=== PATIENT | female | born 1940 | race Caucasian/White ===

== ENCOUNTER 2020-02-07 14:42 | Inpatient (IN) | payer OTHER, SELFPAY ==
[~2020-02-07] VITALS: Ht 160 cm; Wt 63.5 kg
--- NOTE | 2020-02-07 14:52 | NUR ---
Patient transferred to bed 11 via wheelchair by tech. RN evaluating patient at bedside.
[2020-02-07 15:07] VITALS: BP 210/104
--- NOTE | 2020-02-07 15:09 | NUR ---
80 Y/O F C/C LEFT FOOT PRESSURE ULCER PROGRESSIVELY GETTING WORSE FOR THE LAST TWO MONTHS. PT IN NO DISTRESS, DENIES PAIN, A/OX4. PER DAUGHTER UNABLE TO WALK DUE TO PRESSURE ULCER ON LEFT HEEL WORSENING. FOOT ASSESSMENT ERYTHEMA NOTED AROUND ULCER, ULCER DEEP IN DEPTH WITH YELLOW COLORATION, NO DRAINAGE NOTED. PT NKA. HX HTN,HDL,DM. RX INSULIN, UNABLE TO OBTAIN RX FOR HTN,HDL. PT CURRENTLY ON ABX PRESCRIBED OUTSIDE OF COUNTRY. PT WHEELCHAIR TO BED AND ASSISTED TO BED, ADEQUATE STRENGTH ON RIGHT LEG NOTED. SIDE RAIL X2.
--- NOTE | 2020-02-07 15:10 | NUR ---
ERMD AT BEDSIDE
[2020-02-07] MEDS ORDERED: LANTUS SUBQ (15:20)
[2020-02-07] MEDS ORDERED: NACL 0.9% 1,000 ML IV ONE (15:25)
[2020-02-07] MEDS ORDERED: PIPERACILLIN/TAZOBACTAM 3.375 GM in DEXTROSE 5% 50 ML IV ONE (15:25)
[2020-02-07] MEDS ORDERED: ONDANSETRON 4 MG/2 ML VIAL IVP ONE (15:25)
[2020-02-07] MEDS ORDERED: MORPHINE SULFATE 4 MG/ML SYR IVP ONE (15:25)
[2020-02-07] MEDS ORDERED: VANCOMYCIN 1,000 MG in DEXTROSE 5% 250 ML IV ONE (15:25)
[2020-02-07] MEDS ORDERED: PIPERACILLIN/TAZOBACTAM 3.375 GM VIAL IV ONE (15:34)
--- NOTE | 2020-02-07 15:47 | NUR ---
LAB AT BEDSIDE
[2020-02-07] MEDS ORDERED: VANCOMYCIN 1,000 MG VIAL ONE ×2 (15:54→16:07)
[2020-02-07 15:57] LABS: BASOPHILS # (AUTO) 0.2 K/uL (0.00-0.22); BASOPHILS % (AUTO) 1.1 % (0.0-2.0); EOSINOPHILS # (AUTO) 0.3 K/uL (0-0.4); EOSINOPHILS % (AUTO) 1.9 % (0.0-4.0); HEMATOCRIT 35.5 % (36-48); HEMOGLOBIN 11.5 g/dL (12.0-16.0); LYMPHOCYTES # (AUTO) 4.1 K/uL (2.5-16.5); MEAN CORPUSCULAR HEMOGLOBIN 28 pg (27-31); MEAN CORPUSCULAR HGB CONC 32 g/dL (33-37); MEAN CORPUSCULAR VOLUME 88.1 fL (80-94); MONOCYTES # (AUTO) 1.1 K/uL (0.8-1.0); MONOCYTES % (AUTO) 7.3 % (1.7-9.3); NEUTROPHILS # (AUTO) 9.1 K/uL (1.8-7.7); NEUTROPHILS % (AUTO) 61.7 % (42.2-75.2); PLATELET COUNT (AUTO) 185 K/uL (140-450); RED BLOOD CELL COUNT(AUTO) 4.03 MIL/uL (4.20-5.40); RED CELL DISTRIBUTION WIDTH 14.3 % (11.6-13.7); WHITE BLOOD COUNT (AUTO) 14.8 K/uL (4.8-10.8)
--- NOTE | 2020-02-07 15:57 | NUR ---
DAUGHTER: KHADRA OCAMPO PHONE: [phone]
--- NOTE | 2020-02-07 15:57 | NUR ---
PT RESTING IN BED, SIDE RAIL X1 [facility]
[2020-02-07 16:13] LABS: PROTHROMBIN TIME 10.1 secs (10.8-13.4)
[2020-02-07 16:15] LABS: ALBUMIN 2.4 g/dL (3.4-5.0); ANION GAP 10.6 (8-16); ASPARTATE AMINOTRANSFERASE 16 U/L (15-37); CARBON DIOXIDE 28.3 mmol/L (21-32); CHLORIDE 105 mmol/L (98-107); CREATININE 1.3 mg/dL (0.6-1.3); GLUCOSE 236 mg/dL (74-106); POTASSIUM 3.9 mmol/L (3.5-5.1); SODIUM SERUM 140 mmol/L (136-145); TOTAL BILIRUBIN 0.2 mg/dL (0.0-1.0); UREA NITROGEN, BLOOD 17 mg/dL (7-18)
[2020-02-07] MEDS ORDERED: LORazepam 2 MG/ML VIAL IM/IVP PRN (16:45)
[2020-02-07] MEDS ORDERED: ZOLPIDEM 5 MG TAB PO PRN (16:45)
[2020-02-07] MEDS ORDERED: ONDANSETRON 4 MG/2 ML VIAL IM/IVP PRN (16:45)
[2020-02-07] MEDS ORDERED: DOCUSATE SODIUM 100 MG GELCAP PO PRN (16:45)
--- NOTE | 2020-02-07 17:08 | NUR ---
RAD AT BEDSIDE
--- NOTE | 2020-02-07 17:09 | NUR ---
FLOOR MD AT BEDSIDE
--- NOTE | 2020-02-07 17:14 | NUR ---
URINE OBTAINED ; PT VOIDED ON BEDPAN
--- NOTE | 2020-02-07 17:30 | NUR ---
RAD AT BEDSIDE
[2020-02-07] MEDS ORDERED: VANCOMYCIN PER PHARMACY MC PRN (17:45)
[2020-02-07] MEDS ORDERED: DEXTROSE 50% 50 ML SYR IVP PRN (17:45)
--- NOTE | 2020-02-07 17:45 | NUR ---
RECEIVED PATIENT FROM ED VIA GURNEY. PATIENT IS ALERT, AWAKE, AND ORIENTED X4. PATIENT IS CROATIAN SPEAKING ONLY. INITIAL VITALS 98.2 81 18 163/65. RESP EVEN AND UNLABORED ON ROOM AIR, O2SAT 96%. PATIENT DENIES OF PAIN AND DISCOMFORT AT THIS TIME. PATIENT HAS DIABETIC ULCERS TO LEFT LOWER HEEL AND LATER ASPECT OF LEFT FOOT. IVF STARTED WITH NS AT 40ML/HR TO LEFT AC 20. INVESTIGATION MANAGER IS DAUGHTER KARINA SALAZAR AT [phone]. PLAN OF CARE DISCUSSED WITH PATIENT. BED IN LOW POSITION, CALL LIGHT IN PLACE. WILL CONTINUE TO MONITOR.
--- NOTE | 2020-02-07 17:50 | NUR ---
Patient will be admitted to care of SALAZAR. Admited to TELEMETRY. Will go to room 121B. Belongings list completed. Report to DUSTY MONTALVO.
[2020-02-07] MEDS ORDERED: BISACODYL 10 MG SUPP RC ONE ×2 (18:10→21:21)
[2020-02-07] MEDS: NACL 0.9% 1,000 ML IV SCH (18:15)
[2020-02-07 18:19] LABS: THYROID STIMULATING HORMONE 1.98 uIU/mL (0.34-3.74)
--- NOTE | 2020-02-07 19:05 | NUR ---
VITALS AT 97.1 76 14 201/81 98% RA. REPORTED TO DR NAIR. NO NEW ORDERS AT THIS TIME.
[2020-02-07 19:19] LABS: APPEARANCE,URINE CLEAR (CLEAR); BILIRUBIN,URINE NEGATIVE (NEGATIVE); BLOOD, URINE NEGATIVE (NEGATIVE); COLOR,URINE YELLOW (YELLOW); LEUKOCYTE ESTERASE ,URINE TRACE (NEGATIVE); NITRITE, URINE NEGATIVE (NEGATIVE); UGLUCOSE NEGATIVE (NEGATIVE)
--- NOTE | 2020-02-07 19:25 | NUR ---
ENDORSED PATIENT TO NIGHT NURSE. PATIENT IN STABLE CONDITION.
[2020-02-07 19:30] VITALS: BP 218/88
--- NOTE | 2020-02-07 19:30 | NUR ---
RAMA. REPORT FROM AM NURSE, ADMISSION FROM ER TO TELEMETRY UNIT , with chief complaint of WORSENING LEFT FOOT DIABETIC ULCER ,80 y/o ,Female, Cooperative, AWAKE, A/OX3. RESPIRATION EVEN AND UNLABORED. LEGALLY BLIND, ADMITTED SHE HAS BLURRY VISION. IV OF NS AT 40 ML/HR INFUSING LEFT AC G20. USES A WHEEL CHAIR AT HOME, ASSISTED TO BR TO VOID BY . LEFT FOOT DIABETIC ULCER AT THE HEEL AND LATERAL ASPECT OF LEFT FOOT, OPEN TO AIR, WITH MINIMAL DRAINAGE NOTED. ADMISSION DATA GATHERED WITH HELP OF MEAT CURER JOSE #[id number]. PLAN OF CARE DISCUSSED WITH PATIENT. NEEDS REINFORCEMENT. DENIES PAIN 0/10. oriented to call light, bed, phone,television, bathroom, smoking policy,visiting hours, procedures, ID bracelet on. Belongings list checked.
[2020-02-07] MEDS: LISINOPRIL 10 MG TAB PO SCH (19:48)
--- NOTE | 2020-02-07 19:48 | NUR ---
BP - 218/88, HR - 80, MEDICATED WITH ZESTRIL PER MD ORDER.
[2020-02-07 20:17] LABS: RBC,URINE 0-5 /HPF (0-5)
[2020-02-07] MEDS: hydrALAZINE 20 MG/ML VIAL IVP PRN (21:00)
--- NOTE | 2020-02-07 21:00 | NUR ---
BP CHECKED - 194/89, HR - 76. MEDICATED WITH APRESOLINE IVP BY SELVIN CANTRELL. WILL CONTINUE TO MONITOR.
--- NOTE | 2020-02-07 21:23 | NUR ---
CONSTIPATED, LAST BM SATURDAY. MEDICATED WITH DULCOLAX SUPPOSITORY PER MD ORDER.
--- NOTE | 2020-02-07 21:26 | NUR ---
Patient's Plan of Care was discussed and reviewed with SUPERVISOR DIALS: GILBERT CULP
[2020-02-07] MEDS: BLOOD GLUCOSE MONITORING 1 DEV DEV FS SCH (21:30)
[2020-02-07] MEDS: INSULIN LISPRO SLIDING SCALE 100 UNITS/ML VIAL SUBQ PRN (21:31)
[2020-02-07] MEDS ORDERED: PNEUMOCOCCAL VACCINE 23 MCG/0.5 ML VIAL IMVAC SCH (23:10)
--- NOTE | 2020-02-07 23:45 | NUR ---
CLEANSE WOUNDS WITH NS, AEROBIC AND ANAEROBIC CULTURE DONE. ÓSCAR/RENE RNs CLEANSED WOUND WITH NS, APPLIED ADAPTIC DRESSING AND COVERED WITH GAUZE AND KERLIX DRESSING. MADE COMFORTABLE IN BED WITH PILLOWS.
[2020-02-08] VITALS: BP 159/79
--- NOTE | 2020-02-08 | NUR ---
RESTING IN BED, BP CHECKED - 159/7Y9, HR - 98.
[2020-02-08] MEDS: HYDROcodone/APAP 5/325 MG 1 TAB TAB PO PRN ×5 (00:11→20:31)
[2020-02-08] MEDS ORDERED: PIPERACILLIN/TAZOBACTAM 3.375 GM VIAL IV ONE (00:20)
[2020-02-08] MEDS: PIPERACILLIN/TAZOBACTAM 3.375 GM in DEXTROSE 5% 50 ML IV SCH ×3 (00:31→15:19)
--- NOTE | 2020-02-08 02:20 | NUR ---
HAD SOFT YELLOW BROWN BM, SEMI-MEDIUM IN SIZE. CLEANSED AND REPOSITIONED IN BED WITH PILLOWS.
--- NOTE | 2020-02-08 04:00 | NUR ---
SLEEPING COMFORTABLY IN BED.
[2020-02-08 04:30] VITALS: BP 208/101
[2020-02-08] MEDS: hydrALAZINE 20 MG/ML VIAL IVP PRN ×2 (04:45→14:06)
[2020-02-08 06:00] LABS: BASOPHILS % (AUTO) 0.3 % (0.0-2.0); EOSINOPHILS # (AUTO) 0.2 K/uL (0-0.4); EOSINOPHILS % (AUTO) 1.5 % (0.0-4.0); HEMATOCRIT 35.6 % (36-48); HEMOGLOBIN 11.6 g/dL (12.0-16.0); LYMPHOCYTES # (AUTO) 3.5 K/uL (2.5-16.5); LYMPHOCYTES % (AUTO) 21.3 % (20.5-51.1); MEAN CORPUSCULAR HEMOGLOBIN 29 pg (27-31); MEAN CORPUSCULAR HGB CONC 33 g/dL (33-37); MEAN CORPUSCULAR VOLUME 87.9 fL (80-94); MONOCYTES % (AUTO) 6.2 % (1.7-9.3); NEUTROPHILS # (AUTO) 11.6 K/uL (1.8-7.7); NEUTROPHILS % (AUTO) 70.7 % (42.2-75.2); PLATELET COUNT (AUTO) 325 K/uL (140-450); RED BLOOD CELL COUNT(AUTO) 4.05 MIL/uL (4.20-5.40); RED CELL DISTRIBUTION WIDTH 14.4 % (11.6-13.7); WHITE BLOOD COUNT (AUTO) 16.4 K/uL (4.8-10.8)
[2020-02-08] MEDS: BLOOD GLUCOSE MONITORING 1 DEV DEV FS SCH ×4 (06:23→20:20)
[2020-02-08] MEDS: INSULIN LISPRO SLIDING SCALE 100 UNITS/ML VIAL SUBQ PRN ×2 (06:24→16:54)
[2020-02-08 06:27] LABS: ANION GAP 9.5 (8-16); CARBON DIOXIDE 30.3 mmol/L (21-32); CHLORIDE 105 mmol/L (98-107); CREATININE 1.1 mg/dL (0.6-1.3); GLUCOSE 182 mg/dL (74-106); POTASSIUM 4.8 mmol/L (3.5-5.1); SODIUM SERUM 140 mmol/L (136-145); UREA NITROGEN, BLOOD 13 mg/dL (7-18)
[2020-02-08 06:42] LABS: CHOL/HDL RATIO 4.1 (1-4.5)
--- NOTE | 2020-02-08 07:00 | NUR ---
APPLIED BILATERAL LEG SEQUENTIALS, AFTER 30 MINUTES REQUESTED SEQUENTIAL ON THE LEFT LEG TO BE TAKEN OFF, STATED IT IS UNCOMFORTABLE. CONDITION REMAIN STABLE. WILL ENDORSE TO AM SHIFT NURSE FOR CONTINUITY OF CARE.
--- NOTE | 2020-02-08 07:20 | NUR ---
SHIFT REPORT RECEIVED FROM FISHER LAMPARA NET NURSE. PT IS IN BED SLEEPING AT THIS TIME. IV LINE PLACE. SAFETY MEASURES IN PLACE. WILL CONTINUE TO MONITOR. CALL LIGHT IN REACH.
[2020-02-08 08:00] VITALS: BP 158/72
[2020-02-08] MEDS: LACTOBACILLUS RHAMNOSUS GG 1 EACH CAP PO SCH (08:55)
[2020-02-08] MEDS: LISINOPRIL 10 MG TAB PO SCH (08:56)
[2020-02-08] MEDS ORDERED: INSULIN LANTUS 100 UNITS/ML 10 ML VIAL SUBQ SCH (09:00)
--- NOTE | 2020-02-08 09:17 | NUR ---
PATIENT HAS BEEN SCREENED AND CATEGORIZED HIGH NUTRITION RISK. PATIENT WILL BE SEEN WITHIN 1-2 DAYS OF ADMISSION. 02/08/20-02/09/[address]
--- NOTE | 2020-02-08 09:18 | NUR ---
LANTUS 50U NOT GIVEN. BS 101. NOTIFIED
--- NOTE | 2020-02-08 10:59 | NUR ---
COUNSELING CASE MANAGER NOTE: Basic Screen: Yes High Risk DC Screen [place]: KARINA DOUGLAS Home Relationship: DAUGHTER Pre-Admission Living Arrangements: Lives with Other Prior ADL Needs Assistance Current Home Health Name/Tel: N/A Current DME/02 Name/Tel: WHEELCHAIR Current Hospice Name/Tel: N/A Current Dialysis Name/Tel: N/A Healthcare Decision Maker: Next of Kin Advance Directive No Physician Orders for Life Sustaining Treatment Form No Patient/Family Have Educational Needs No Discipline: Case Mgt/Social Svcs Tentative Discharge Plan/Destination: No Needs Identified Will require assistance post discharge: No Referred to Cut Off Saw Grader: No Tentative Discharge Plan Summary: PATIENT IS A 80-YEAR-OLD FEMALE ADMITTED FOR LT DIABETIC FOOT ULCER. PATIENT HAS PMHX OF DM, HTN, AND DYSLIPIDEMIA. PATIENT WAS ADMITTED FROM HOME WHERE SHE LIVES WITH HER FAMILY. SW CONTACTED PATIENT'S DAUGHTER KARINA DOUGLAS [phone]. PER KARINA, PATIENT REQUIRES ASSISTANCE WITH TOILETING, WALKING, BATHING, PREPARING MEALS, AND CHANGING. KARINA REPORTED NO HISTORY OF MENTAL HEALTH OR SUBSTANCE ABUSE. TENTATIVE DISCHARGE PLAN IS FOR PATIENT TO RETURN HOME. NO FURTHER NEEDS IDENTIFIED. Signature: MASSIMO WILKERSON Date: Feb 08, 2020 Time: 10:58
--- NOTE | 2020-02-08 11:00 | NUR ---
PT IS AWAKE, ALERT, RESPONSIVE. NO DISTRESS. SAFETY MEASURES IN PLACE. WILL CONTINUE TO MONITOR
--- NOTE | 2020-02-08 11:05 | NUR ---
WOUND CARE EVALUATION NOTE: REASON FOR EVALUATION: LEFT HEEL DIABETIC ULCER WOUNDS SKIN ASSESSMENT DONE WITH THIS 80 Y/O FEMALE PT ADMITTED FROM HOME TO [facility] WITH INITIAL DX OF LEFT FOOT PAIN. BLE DRY SCALY SKIN, NO HAIR GROWTH, TRACE EDEMA TO BILATERAL LOWER LEGS. BILATERAL DORSAL PEDAL PULSES PRESENT AND NORMAL. THICKEN FUNGAL NAILS OBSERVED. PLAN OF CARE DISCUSSED WITH PRIMARY RN AND DR. CARLSON. INTEGUMENTARY: -XEROSIS TO BLE -DIABETIC ULCER TO LEFT HEEL, 3.5X4.5X2 CM, WOUND BED IS 100% BROWN/ YELLOW SLOUGH, SMALL AMOUNT PURULENT DRAINAGE, MILD ODOR, WOUND EDGE BLACK /BROWN SLOUGH TISSUE AND EZRA WOUND SKIN PALE WHITE, PAIN 2/10 -DIABETIC ULCER TO LEFT LATERAL FOOT, 3X3X2 CM, WOUND BED 100 % BROWN/ YELLOW SLOUGH, SMALL AMOUNT PURULENT DRAINAGE, MILD ODOR, WOUND EDGE BROWN SLOUGH TISSUE AND EZRA WOUND SKIN HYPERKERATOTIC BORDER RECOMMENDATIONS: -WOUND CULTURE PENDING -PODIATRY CONSULT AND DEBRIDEMENT -X-RAY PENDING REVIEW FOR POSSIBLE OSTEOMYELITIS -CLEANSE LEFT HEEL AND LEFT LATERAL FOOT WOUNDS WITH NS AND GAUZE, PAT DRY, PACK WITH THEROHONEY GEL AND ADAPTIC DRESSING, AND WRAP WITH MAGGIE Q DAY AND PRN WITH SOILING. -APPLY HEEL RAISER TO LEFT HEEL AT ALL TIMES -OFFLOAD BILATERAL HEELS BY PLACING PILLOWS UNDER CALVES UNLESS OTHERWISE CONTRAINDICATED -PRESSURE REDISTRIBUTION SURFACE THERAPY -TURN AND REPOSITION Q2H, OFFLOAD SACRALCOCCYX BY TURNING RIGHT AND LEFT -CONTINUE TO FOLLOW RD RECOMMENDATIONS ALL ABOVE RECOMMENDATIONS DISCUSSED WITH PRIMARY RN PLEASE CONTACT WOUND CARE NURSE FOR ANY QUESTION AND CHANGE OF WOUND CONDITION.
[2020-02-08 12:00] VITALS: BP 175/71
--- NOTE | 2020-02-08 12:30 | NUR ---
PT IS HAVING LUNCH AT THIS TIME. PT IS AWAKE, ALERT, RESPONSIVE. NO DISTRESS. SAFETY MEASURES IN PLACE. CALL LIGHT IS WITHIN REACH. WILL CONTINUE TO MONITOR
[2020-02-08] MEDS: DOCUSATE SODIUM 100 MG GELCAP PO SCH ×2 (12:39→20:21)
[2020-02-08] MEDS: THERAHONEY GEL 42.5 GM TP SCH (13:05)
--- NOTE | 2020-02-08 14:13 | NUR ---
DC PLANNIN YRS OLD FEMALE PATIENT WAS ADMITTED FROM HOME WITH A DX OF LEFT DIABETIC FOOT ULCER. PT HAS A HISTORY OF DM, HTN, DYSLIPIDEMIA. LEFT FOOT XR MINIMALLY DISPLACEMENT FRACTURE AT THE BASE OF THE LATERAL 5TH METATARSAL. OSTEOMYELITIS CANNOT BE EXCLUDED . STARTED ON ZOSYN AND VANCOMYCIN . WOUND AND BLOOD CULTURE PENDING. CONSULTED WITH PODIATRY AND ID DR WILLAMS. DC PLAN TO GO HOME WITH DISCHARGE NEEDS. CM TO FOLLOW Addendum: 02/11/20 at 1211 by Naomi Tejada CM DC PLANNING: COVID TEST PENDING. SEEN BY DR WILLAMS CONTINUE FURTHER THERAPY WITH ZOSYN ,DISCONTINUED VANCOMYCIN , AWAITING FOR WOUND CULTURE. DC PLAN SNF VERSUS HOME HEALTH FOR IV ABX MD WILL DISCUSSED WITH PATIENT AND FAMILY MEMBERS. CM TO FOLLOW Addendum: 02/11/20 at 1438 by Martina Lee CM RECEIVED ORDER FOR SNF PLACEMENT, FAXED PATIENTS CLINICALS TO [facility]. Addendum: 02/12/20 at 0923 by Martina Lee CM PATIENTS COVID TEST CAME BACK POSITIVE. WILL NOTIFY [facility].
[2020-02-08] MEDS: amLODIPine 5 MG TAB PO SCH (15:09)
[2020-02-08 16:00] VITALS: BP 163/67
[2020-02-08] MEDS ORDERED: VANCOMYCIN 1,000 MG in NACL 0.9% 250 ML IV SCH (16:00)
--- NOTE | 2020-02-08 16:00 | NUR ---
CHECK BSG. INSULIN GIVEN PER SLIDING SCALE. PT TALKING TO FAMILY MEMBER ON THE PHONE. PT IS AWAKE, ALERT, RESPONSIVE. NO DISTRESS. SAFETY MEASURES IN PLACE. CALL LIGHT IS WITHIN REACH. WILL CONTINUE TO MONITOR
[2020-02-08] MEDS: NACL 0.9% 1,000 ML IV SCH (17:23)
--- NOTE | 2020-02-08 18:40 | NUR ---
GAS EXAMINER CHANGING PT SHEETS. IV MEDICATIONS RUNNING. PT IS AWAKE, ALERT, RESPONSIVE. NO DISTRESS. SAFETY MEASURES IN PLACE. CALL LIGHT IS WITHIN REACH. WILL CONTINUE TO MONITOR
--- NOTE | 2020-02-08 19:24 | NUR ---
SHIFT REPORT GIVEN TO LINER CHECKER NURSE FOR CONTINUATION OF CARE. PT STABLE. CALL LIGHT IN REACH.
--- NOTE | 2020-02-08 19:25 | NUR ---
RECEIVED BEDSIDE REPORT FROM AM NURSE, AMPARO. RESPIRATORY EVEN AND UNLABORED TO ROOM AIR. LEFT FOOT DIABETIC ULCER NOTED. DRESSING DRY AND INTACT. IV SITE ON LAC 20G, PATENT, INTACT, AND ASYMPTOMATIC. RUNNING NS AT 40 ML/HR. PLAN OF CARE DISCUSSED WITH PATIENT. NEEDS REINFORCEMENT. BED IN LOW POSITION, CALL LIGHT WITHIN REACH. WILL CONTINUE TO MONITOR.
[2020-02-08 20:00] VITALS: BP 165/74
[2020-02-08] MEDS: METOPROLOL 25 MG TAB PO SCH (20:21)
--- NOTE | 2020-02-08 20:22 | NUR ---
BS CHECKED, 121, NO INSULIN COVERAGE NEEDED. GIVEN COLACE, METOPROLOL, AND HEPA RIN MD ORDERED. PT TOLERATED WELL. PUT MEDICATIONS MANUALLY D/T SCANNER WAS NOT WORKING.
--- NOTE | 2020-02-08 20:31 | NUR ---
PT C/O 6/10 FOOT PAIN, GIVEN NORCO MD ORDERED. PT TOLERATED WELL. PUT MEDICATIONS MANUALLY D/T SCANNER WAS NOT WORKING.
[2020-02-08] MEDS ORDERED: METOPROLOL 25 MG TAB PO SCH (21:00)
--- NOTE | 2020-02-08 22:10 | NUR ---
REASSESSED BP: 154/68, HR:72. WILL CONTINUE TO MONITOR.
[2020-02-09] VITALS: BP 155/70
[2020-02-09] MEDS: PIPERACILLIN/TAZOBACTAM 3.375 GM in DEXTROSE 5% 50 ML IV SCH ×4 (00:14→23:54)
--- NOTE | 2020-02-09 00:15 | NUR ---
GIVEN ZOSYN MD ORDERED. PT TOLERATED WELL.
--- NOTE | 2020-02-09 02:02 | NUR ---
PT SLEEPING IN BED COMFORTABLY. NO ACUTE DISTRESS NOTED.
[2020-02-09 04:00] VITALS: BP 157/71
--- NOTE | 2020-02-09 04:04 | NUR ---
VS CHECKED, WITHIN PT'S BASELINE. WILL CONTINUE TO MONITOR.
[2020-02-09] MEDS: BLOOD GLUCOSE MONITORING 1 DEV DEV FS SCH ×4 (05:57→21:36)
--- NOTE | 2020-02-09 05:57 | NUR ---
BS CHECKED, 139. NO INSULIN COVERAGE NEEDED.
[2020-02-09 06:25] LABS: MAGNESIUM 1.6 mg/dL (1.8-2.4); PHOSPHORUS 3.4 mg/dL (2.5-4.9)
[2020-02-09 06:28] LABS: CARBON DIOXIDE 30.3 mmol/L (21-32); CHLORIDE 105 mmol/L (98-107); GLUCOSE 146 mg/dL (74-106); POTASSIUM 4.3 mmol/L (3.5-5.1); SODIUM SERUM 140 mmol/L (136-145); UREA NITROGEN, BLOOD 12 mg/dL (7-18)
[2020-02-09 06:34] LABS: BASOPHILS # (AUTO) 0.1 K/uL (0.00-0.22); BASOPHILS % (AUTO) 0.5 % (0.0-2.0); EOSINOPHILS # (AUTO) 0.2 K/uL (0-0.4); EOSINOPHILS % (AUTO) 1.6 % (0.0-4.0); HEMATOCRIT 35.9 % (36-48); HEMOGLOBIN 11.9 g/dL (12.0-16.0); LYMPHOCYTES # (AUTO) 1.6 K/uL (2.5-16.5); LYMPHOCYTES % (AUTO) 13.3 % (20.5-51.1); MEAN CORPUSCULAR HEMOGLOBIN 29 pg (27-31); MEAN CORPUSCULAR HGB CONC 33 g/dL (33-37); MEAN CORPUSCULAR VOLUME 87.3 fL (80-94); MONOCYTES # (AUTO) 0.9 K/uL (0.8-1.0); MONOCYTES % (AUTO) 7.6 % (1.7-9.3); NEUTROPHILS # (AUTO) 9.5 K/uL (1.8-7.7); PLATELET COUNT (AUTO) 296 K/uL (140-450); RED BLOOD CELL COUNT(AUTO) 4.11 MIL/uL (4.20-5.40); RED CELL DISTRIBUTION WIDTH 14.2 % (11.6-13.7); WHITE BLOOD COUNT (AUTO) 12.4 K/uL (4.8-10.8)
--- NOTE | 2020-02-09 06:50 | NUR ---
PT IN STABLE CONDITION. WILL ENDORSE TO DAY SHIFT NURSE FOR CONTINUOUS CARE.
--- NOTE | 2020-02-09 07:20 | NUR ---
RECEIVED BEDSIDE REPORT FROM NIGHTSHIFT NURSE. PT RESTING IN BED. ABLE TO MAKE NEEDS KNOWN. RESPIRATIONS EVEN AND UNLABORED WITH NO SOB OR RESPIRATORY DISTRESS. SKIN WARM AND DRY TO TOUCH. IV SITE IN LAC 20G IS CLEAN, DRY, AND INTACT. SAFETY MEASURES IN PLACE. WILL CONTINUE TO MONITOR
[2020-02-09 08:00] VITALS: BP 109/78
[2020-02-09] MEDS: DOCUSATE SODIUM 100 MG GELCAP PO SCH ×2 (08:42→21:36)
[2020-02-09] MEDS: LACTOBACILLUS RHAMNOSUS GG 1 EACH CAP PO SCH (08:43)
[2020-02-09] MEDS: METOPROLOL 25 MG TAB PO SCH ×2 (08:43→21:41)
[2020-02-09] MEDS: amLODIPine 5 MG TAB PO SCH (08:44)
[2020-02-09] MEDS: LISINOPRIL 10 MG TAB PO SCH (08:44)
--- NOTE | 2020-02-09 08:54 | NUR ---
ADMINISTERED SCHED MED PRESCRIBED PER MD ORDER. PT TOLERATED WELL. PT BLOOD PRESSURE WAS 169/78 AFTER NUMEROUS ATTEMPTS. PRN HYDRALAZINE ADMINISTRATED PRESCRIBED PER MD ORDER. MEDICATION EDUCATION PERFORMED. SAFETY MEASURES IN PLACE. WILL CONTINUE TO MONITOR
--- NOTE | 2020-02-09 10:15 | NUR ---
HOURLY ROUNDING. PT RESTING IN BED. ABLE TO MAKE NEEDS KNOWN. RESPIRATIONS EVEN AND UNLABORED WITH NO SOB OR RESPIRATORY DISTRESS. SKIN WARM AND DRY TO TOUCH. SAFETY MEASURES IN PLACE. WILL CONTINUE TO MONITOR
--- NOTE | 2020-02-09 11:30 | NUR ---
PT BLOOD SUGAR IS 233. PRN INSULIN WILL BE ADMINISTERED WITH NEXT MEAL. SAFETY MEASURES IN PLACE. WILL CONTINUE TO MONITOR
[2020-02-09 12:00] VITALS: BP 155/70
[2020-02-09] MEDS ORDERED: MAG SULF 2000 MG/WATER PREMIX 50 ML IV SCH (12:00)
--- NOTE | 2020-02-09 12:38 | NUR ---
ADMINISTERED SCHED MED PRESCRIBED PER MD ORDER. PT TOLERATED WELL. MEDICATION EDUCATION PERFORMED. SAFETY MEASURES IN PLACE. WILL CONTINUE TO MONITOR
[2020-02-09] MEDS: INSULIN LISPRO SLIDING SCALE 100 UNITS/ML VIAL SUBQ PRN ×2 (12:48→21:46)
[2020-02-09] MEDS: MORPHINE SULFATE 2 MG/ML SYR IVP PRN (12:54)
[2020-02-09] MEDS: THERAHONEY GEL 42.5 GM TP SCH (13:15)
--- NOTE | 2020-02-09 13:15 | NUR ---
PT COMPLAINED OF IV PAIN. IV SITE INFILTRATED. NEW IV INSERTED IN LEFT FA 22G IS CLEAN, DRY, AND INTACT. SAFETY MEASURES IN PLACE. WILL CONTINUE TO MONITOR
--- NOTE | 2020-02-09 14:12 | NUR ---
02/09/20 RD INITIAL ASSESSMENT COMPLETED PLEASE REFER TO NUTRITION ASSESSMENT UNDER CARE ACTIVITY FOR ESTIMATED NUTRITIONAL NEEDS. 1. CONTINUE MECHANICAL SOFT CCHO 60GM DIET TOLERATED 2. RECOMMEND GLUCERNA BID AND HERMINIA BID FOR WOUND HEALING 3. ASSIST PT WITH MEALS IF NEEDED 4. RD TO FOLLOW-UP 3-5 DAYS, MODERATE RISK RENE LARRY RD
--- NOTE | 2020-02-09 14:15 | NUR ---
PT TOLD REVENUE AGENT THAT SHE WANTS TO LEAVE AMA. EDUCATED PT ON BENEFITS AND CONS OF STAYING IN THE HOSPITAL AND GOING HOME. PT VERBALIZED UNDERSTANDING. RESIDENT AWARE. DIALED PT DAUGHTER'S PHONE NUMBER SO PT COULD TALK TO DAUGHTER. PT SAYS THAT SHE WANTS TO STAY. SAFETY MEASURES IN PLACE. WILL CONTINUE TO MONITOR
[2020-02-09] MEDS: ACETAMINOPHEN 325 MG TAB PO PRN (15:46)
--- NOTE | 2020-02-09 15:56 | NUR ---
ADMINISTERED SCHED MED PRESCRIBED PER MD ORDER. PT TOLERATED WELL. MEDICATION EDUCATION PERFORMED. SAFETY MEASURES IN PLACE. WILL CONTINUE TO MONITOR
[2020-02-09 16:00] VITALS: BP 139/56
[2020-02-09] MEDS ORDERED: VANCOMYCIN 1,250 MG in NACL 0.9% 250 ML IV SCH (16:00)
--- NOTE | 2020-02-09 16:30 | NUR ---
PT BLOOD SUGAR IS 133. NO INSULIN NEEDED PERSCRIBED PER MD ORDER. PT TOLERATED WELL. WILL CONTINUE TO MONITOR
--- NOTE | 2020-02-09 16:45 | NUR ---
PT REFUSED PART 2 OF NM BONE SCAN. RESIDENT DR. DAIGLE AND CHARGE MADE AWARE. SAFETY MEASURES IN PLACE. WILL CONTINUE TO MONITOR
[2020-02-09] MEDS: NACL 0.9% 1,000 ML IV SCH (17:07)
--- NOTE | 2020-02-09 17:30 | NUR ---
SPOKE WITH DAUGHTER ZACK [phone] AND EXPLAINED PATIENT CONDITION WITH HER AND WITH PATIENT. ZACK VERBALIZED UNDERSTANDING. SAFETY MEASURES IN PLACE. WILL CONTINUE TO MONITOR
--- NOTE | 2020-02-09 19:22 | NUR ---
ENDORSED AT BEDSIDE TO NIGHTSHIFT NURSE FOR CONTINUITY OF CARE. PT IS STABLE
--- NOTE | 2020-02-09 19:40 | NUR ---
RECIEVED BEDSIDE REPORT FROM AM RN REGARDING THE PT FOR CONTINUITY OF CARE. PATIENT A/A/OX3, FORGETFUL AT TIMES, SPEAKS LUXEMBOURGISH ONLY.DARCY WARREN AIDE WITH THE TRANSLATION AND PT ALSO UNDERSTAND SIMPLE CENTRAL AFRICAN. PT DENIES ANY PAIN,CHEST PAIN AND SOB AT THIS TIME. SR WITH 1ST DEGREE AVB ON ALL ROUND LOGGER,HR 60'S - 80'S. FALL PRECAUTION IMPLEMENTED. INSTRUCTED THE PT NOT TO GET OOB WITHOUT ASSISTANCE.PT VERBALIZED UNDERSTANDING WITH THE POC. CALL LIGHT WITHIN REACH.WILL CONTINUE MONITORING.
[2020-02-09 20:00] VITALS: BP 148/60
--- NOTE | 2020-02-09 21:45 | NUR ---
ADMINISTERED ALL THE SCHEDULED MEDICATIONS AND PT TOLERATED IT WELL.SAFETY PRECAUTION IN PLACED.
--- NOTE | 2020-02-09 23:45 | NUR ---
PT ASLEEP AT THIS TIME. VISIBLE CHEST RISE AND FALL NOTED. NOT IN ANY DISTRESS. CALL LIGHT WITHIN REACH.
[2020-02-10] VITALS: BP 152/59
--- NOTE | 2020-02-10 02:00 | NUR ---
PT ASLEEP AT THIS TIME. NOT IN ANY DISTRESS. CALL LIGHT WITHIN REACH.
[2020-02-10 04:00] VITALS: BP 173/68
[2020-02-10] MEDS: MORPHINE SULFATE 2 MG/ML SYR IVP PRN (04:35)
--- NOTE | 2020-02-10 04:38 | NUR ---
CHECKED PT BP EARLIER AND ITS HIGH.PT SITTING UP AT THE SIDE OF THE BED,DANGLING BOTH LEGS. PT STATED THAT BOTH OF HER LEGS ARE CRAMPING AND ALSO C/O PAIN ON HER LT FOOT WOUND. PRN MORPHINE GIVEN FOR 9/10 PAIN. WILL RE ASSESS PT LATER.
[2020-02-10] MEDS: BLOOD GLUCOSE MONITORING 1 DEV DEV FS SCH ×4 (06:14→20:25)
--- NOTE | 2020-02-10 06:35 | NUR ---
PT STABLE. NO ACUTE EVENTS OVERNIGHT. NO S/SX OF DISTRESS NOTED AT THIS TIME. CALL LIGHT WITHIN REACH.WILL ENDORSE THE PT TO THE ONCOMING RN FOR CONTINUITY OF CARE.
[2020-02-10 07:16] LABS: BASOPHILS # (AUTO) 0.1 K/uL (0.00-0.22); BASOPHILS % (AUTO) 0.7 % (0.0-2.0); EOSINOPHILS % (AUTO) 0.4 % (0.0-4.0); HEMATOCRIT 36.4 % (36-48); HEMOGLOBIN 12.1 g/dL (12.0-16.0); LYMPHOCYTES % (AUTO) 19.9 % (20.5-51.1); MEAN CORPUSCULAR HEMOGLOBIN 29 pg (27-31); MEAN CORPUSCULAR HGB CONC 33 g/dL (33-37); MEAN CORPUSCULAR VOLUME 86.9 fL (80-94); MONOCYTES # (AUTO) 0.9 K/uL (0.8-1.0); MONOCYTES % (AUTO) 9.2 % (1.7-9.3); NEUTROPHILS # (AUTO) 6.9 K/uL (1.8-7.7); NEUTROPHILS % (AUTO) 69.8 % (42.2-75.2); PLATELET COUNT (AUTO) 275 K/uL (140-450); RED BLOOD CELL COUNT(AUTO) 4.19 MIL/uL (4.20-5.40); RED CELL DISTRIBUTION WIDTH 13.9 % (11.6-13.7); WHITE BLOOD COUNT (AUTO) 9.9 K/uL (4.8-10.8)
--- NOTE | 2020-02-10 07:30 | NUR ---
RECIEVED BEDSIDE REPORT FROM CHUCKING MACHINE SET UP OPERATOR TOOL RN, ALISA, FOR CONTINUITY OF CARE. PATIENT AAOX3, FORGETFUL AT TIMES, SPEAKS ENGLISH ONLY. PT DENIES ANY PAIN,CHEST PAIN AND SOB AT THIS TIME.PT. IS ON TELE MONITORING, SR WITH 1ST DEGREE AVB. IV LINE ON THE LEFT UPPER ARM 22G WITH NS RUNNING AT 40ML/HR. FALL PRECAUTION IMPLEMENTED. INSTRUCTED THE PT NOT TO AMBULATE WITHOUT ASSISTANCE. PT VERBALIZED UNDERSTANDING. DISCUSSED POC. CALL LIGHT WITHIN REACH.WILL CONTINUE MONITORING.
[2020-02-10 08:00] VITALS: BP 151/77
[2020-02-10 08:22] LABS: ANION GAP 10.6 (8-16); CARBON DIOXIDE 29.1 mmol/L (21-32); CHLORIDE 102 mmol/L (98-107); POTASSIUM 3.7 mmol/L (3.5-5.1); SODIUM SERUM 138 mmol/L (136-145)
[2020-02-10 08:23] LABS: CREATININE 1.1 mg/dL (0.6-1.3); GLUCOSE 144 mg/dL (74-106); UREA NITROGEN, BLOOD 13 mg/dL (7-18)
[2020-02-10] MEDS ORDERED: LISINOPRIL 10 MG TAB PO SCH ×2 (08:54→09:00)
[2020-02-10] MEDS ORDERED: BISACODYL 10 MG SUPP RC SCH (09:00)
--- NOTE | 2020-02-10 09:00 | NUR ---
PT. IS CHANGED, CLEANED AND TURNED. NO SIGNS OF DISTRESS NOTED. WILL CONTINUE TO MONITOR.
[2020-02-10 09:12] LABS: PHOSPHORUS 3.5 mg/dL (2.5-4.9)
[2020-02-10] MEDS ORDERED: LISINOPRIL 20 MG TAB PO SCH (09:14)
[2020-02-10] MEDS: LACTOBACILLUS RHAMNOSUS GG 1 EACH CAP PO SCH (09:17)
[2020-02-10] MEDS: PIPERACILLIN/TAZOBACTAM 3.375 GM in DEXTROSE 5% 50 ML IV SCH ×2 (09:17→15:42)
[2020-02-10] MEDS: DOCUSATE SODIUM 100 MG GELCAP PO SCH ×2 (09:17→20:19)
[2020-02-10] MEDS: METOPROLOL 25 MG TAB PO SCH ×2 (09:18→20:19)
--- NOTE | 2020-02-10 09:20 | NUR ---
MORNING MEDICATIONS GIVEN. NO SIGNS OF DISTRESS NOTED. WILL CONTINUE TO MONITOR.
[2020-02-10] MEDS: INSULIN LISPRO SLIDING SCALE 100 UNITS/ML VIAL SUBQ PRN ×3 (11:23→20:26)
--- NOTE | 2020-02-10 11:30 | NUR ---
4 UNITS OF INSULIN COVERAGE GIVEN FOR BLOOD GLUCOSE OF 211. WILL CONTINUE TO MONITOR.
--- NOTE | 2020-02-10 11:45 | NUR ---
V/S TAKEN BP IS 181/104. BP REPORTED TO DR. CARLSON WITH MD PLACING ORDERS. WILL CONTINUE TO MONITOR.
[2020-02-10 12:00] VITALS: BP 186/104
[2020-02-10] MEDS: THERAHONEY GEL 42.5 GM TP SCH (13:03)
--- NOTE | 2020-02-10 13:15 | NUR ---
PT. IS TURNED, CLEANED AND CHANGED. 2 LEFT DIABETIC ULCER WOUNDS CLEANED AND CHANGED DRESSINGS. NO SIGNS OF DISTRESS NOTED. WILL CONTINUE TO MONITOR.
--- NOTE | 2020-02-10 15:50 | NUR ---
RECEIVED CALL FROM LAB ABOUT COVID-19 TEST BEING REJECTED. WILL INFORM MD TO PLACE NEW ORDER AND WILL SWAB NEW SAMPLE. WILL CONTINUE TO MONITOR.
[2020-02-10 16:00] VITALS: BP 140/69
[2020-02-10] MEDS: NACL 0.9% 1,000 ML IV SCH (17:21)
--- NOTE | 2020-02-10 17:50 | NUR ---
2 UNITS OF INSULIN COVERAGE GIVEN FOR BLOOD GLUCOSE OF 188. NO SIGNS OF DISTRESS NOTED. COVID-19 TEST RETAKEN AND SENT TO LAB. WILL CONTINUE TO MONITOR.
--- NOTE | 2020-02-10 19:15 | NUR ---
RECEIVED REPORT FROM DAY SHIFT NURSE. PT IN BED RESTING. AWAKE, ALERT, ORIENTED X3. WITH EPISODES OF CONFUSION. RESPIRATIONS EVEN AND UNLABORED TO ROOM AIR. ABD SOFT AND NON-TENDER. SKIN IS WARM AND DRY. WITH DIABETIC ULCER ON LEFT FOOT. DRESSING IS DRY AND CLEAN. IV ACCESS PRESENT ON LEFT UPPER ARM G22. IVF INFUSING WELL. PT DENIES ANY PAIN OR DISCOMFORT AT THIS TIME. PLAN OF CARE DISCUSSED. PT VERBALIZED UNDERSTANDING. SAFETY MEASURES IN PLACE. CALL LIGHT WITHIN REACH. WILL CONTINUE TO MONITOR.
--- NOTE | 2020-02-10 19:15 | NUR ---
ENDORSED TO COVER CREASER RN, ROBIN, FOR CONTINUITY OF CARE.
[2020-02-10 20:00] VITALS: BP 147/70
--- NOTE | 2020-02-10 20:26 | NUR ---
VITAL SIGNS STABLE. SCHEDULED MEDICATIONS GIVEN ORDERED. BLOOD SUGAR 159. INSULIN COVERAGE GIVEN. WOUND DRESSING DRY, CLEAN, AND INTACT. PT DENIES ANY PAIN OR DISCOMFORT AT THIS TIME. SAFETY MEASURES IN PLACE. CALL LIGHT WITHIN REACH. WILL CONTINUE TO MONITOR.
--- NOTE | 2020-02-10 22:05 | NUR ---
ROUNDS MADE. PT IN BED SLEEPING WITH HOB ELEVATED. VISIBLE CHEST RISE AND FALL NOTED. PT NOT IN DISTRESS. PT KEPT SAFE AND COMFORTABLE. CALL LIGHT WITHIN REACH. WILL CONTINUE TO MONITOR.
[2020-02-11] VITALS: BP 180/80
[2020-02-11] MEDS: PIPERACILLIN/TAZOBACTAM 3.375 GM in DEXTROSE 5% 50 ML IV SCH ×4 (00:26→23:53)
[2020-02-11] MEDS: hydrALAZINE 20 MG/ML VIAL IVP PRN ×2 (00:50→12:09)
--- NOTE | 2020-02-11 00:50 | NUR ---
VITAL SIGNS TAKEN BP-180/80, HR-78. PT ASYMPTOMATIC. DENIES ANY HEADACHE OR DISCOMFORT. PRN HYDRALAZINE GIVEN ORDERED. AWARE. WILL CONTINUE TO MONITOR.
--- NOTE | 2020-02-11 01:55 | NUR ---
BP RE-ASSESSED 160/74, HR-84. TEMP 100.4. PRN TYLENOL GIVEN. COOLING MEASURE IN PLACE. WILL CONTINUE TO MONITOR.
[2020-02-11] MEDS: ACETAMINOPHEN 325 MG TAB PO PRN ×2 (02:08→14:38)
--- NOTE | 2020-02-11 02:30 | NUR ---
PICC LINE NURSE DIDN'T CALL BACK.CALLED AGAIN [phone] AND LEFT MESSAGE .
[2020-02-11 04:00] VITALS: BP 145/70
--- NOTE | 2020-02-11 04:17 | NUR ---
VS TAKEN. BP STABLE. TEMP 99.7. COOLING MEASURES IN PLACE. PT DENIES PAIN OR DISCOMFORT AT THIS TIME. NO REQUESTS MADE. SAFETY MEASURES IN PLACE. CALL LIGHT WITHIN REACH. WILL CONTINUE TO MONITOR.
[2020-02-11] MEDS: BLOOD GLUCOSE MONITORING 1 DEV DEV FS SCH ×4 (06:04→21:17)
--- NOTE | 2020-02-11 06:08 | NUR ---
BLOOD SUGAR 122. NO INSULIN COVERAGE NEEDED. WILL CONTINUE TO MONITOR.
[2020-02-11 06:11] LABS: BASOPHILS # (AUTO) 0.1 K/uL (0.00-0.22); BASOPHILS % (AUTO) 0.5 % (0.0-2.0); HEMATOCRIT 32.4 % (36-48); HEMOGLOBIN 10.8 g/dL (12.0-16.0); LYMPHOCYTES # (AUTO) 2.4 K/uL (2.5-16.5); LYMPHOCYTES % (AUTO) 19.6 % (20.5-51.1); MEAN CORPUSCULAR HEMOGLOBIN 29 pg (27-31); MEAN CORPUSCULAR HGB CONC 33 g/dL (33-37); MEAN CORPUSCULAR VOLUME 86.5 fL (80-94); MONOCYTES # (AUTO) 1.1 K/uL (0.8-1.0); MONOCYTES % (AUTO) 9.1 % (1.7-9.3); NEUTROPHILS # (AUTO) 8.6 K/uL (1.8-7.7); NEUTROPHILS % (AUTO) 70.8 % (42.2-75.2); PLATELET COUNT (AUTO) 272 K/uL (140-450); RED BLOOD CELL COUNT(AUTO) 3.74 MIL/uL (4.20-5.40); RED CELL DISTRIBUTION WIDTH 14.1 % (11.6-13.7); WHITE BLOOD COUNT (AUTO) 12.1 K/uL (4.8-10.8)
[2020-02-11 06:28] LABS: ANION GAP 11.3 (8-16); CARBON DIOXIDE 27.6 mmol/L (21-32); CHLORIDE 103 mmol/L (98-107); CREATININE 1.1 mg/dL (0.6-1.3); GLUCOSE 140 mg/dL (74-106); SODIUM SERUM 139 mmol/L (136-145); UREA NITROGEN, BLOOD 19 mg/dL (7-18)
[2020-02-11 06:47] LABS: MAGNESIUM 1.9 mg/dL (1.8-2.4); PHOSPHORUS 3.9 mg/dL (2.5-4.9)
--- NOTE | 2020-02-11 07:18 | NUR ---
ENDORSED TO DAY SHIFT NURSE FOR CONTINUITY OF CARE. PT IN STABLE CONDITION.
--- NOTE | 2020-02-11 07:20 | NUR ---
RECEIVED REPORT FROM NIGHT NURSE PT IS ON BEDREST,IRISH SPEAKING, ON ROOM AIR, IV SITES ON LEFT UPPER ARM G 22, SKIN NOT INTACT LEFT FOOT ULCER ON THE SIDE AND HEEL, SAFETY MEASURES IN PLACE AND CALL LIGHT WITHIN REACH. WILL CONTINUE TO MONITOR.
[2020-02-11 07:44] LABS: POTASSIUM 2.9 mmol/L (3.5-5.1)
[2020-02-11 08:00] VITALS: BP 166/77
--- NOTE | 2020-02-11 08:14 | NUR ---
CALLED PT DAUGHTER ZACK DOUGLAS [phone] FOR PICC LINE CONSENT. EXPLAINED THE PROCEDURE AND THE PT DAUGHTER CONSENTED TO THE PROCEDURE. VERIFIED AND WITNESS BY HADLEY WEISS RN AND JOHN ALFARO RN.
[2020-02-11] MEDS: LACTOBACILLUS RHAMNOSUS GG 1 EACH CAP PO SCH (08:31)
[2020-02-11] MEDS: DOCUSATE SODIUM 100 MG GELCAP PO SCH ×2 (08:32→20:59)
[2020-02-11] MEDS: METOPROLOL 25 MG TAB PO SCH ×2 (08:32→21:00)
[2020-02-11] MEDS: LISINOPRIL 20 MG TAB PO SCH (08:32)
[2020-02-11] MEDS ORDERED: POTASSIUM CHLORIDE 40 MEQ, LIDOCAINE MPF 1% 25 MG in NACL 0.9% 250 ML IV SCH (09:00)
--- NOTE | 2020-02-11 09:00 | NUR ---
MEDICATIONS DUE GIVEN AT THIS TIME, PT IS AWAKE AND COOPERATIVE, PT IS STABLE, IV SITES INTACT AND PATENT. SAFETY MEASURES IN PLACE , CALL LIGHT WITHIN REACH. WILL CONTINUE TO MONITOR.
--- NOTE | 2020-02-11 09:47 | NUR ---
PICC LINE NURSE IBRAHIMA CALLED AT THIS TIME TO VERIFY THE ODER AND DURATION OF THE PICC LINE. WILL CONTINUE TO MONITOR.
--- NOTE | 2020-02-11 11:30 | NUR ---
BLOOD GLUCOSE MONITORING DONE 185MG/DL GAVE 2 UNITS OF INSULIN. CHECK VITAL SIGNS BP 173/82 WA 76. GAVE HYDRALAZINE 0.5MG Q6HR PRN. SAFETY MEASURES IN PLACE AND CALL LIGHT WITHIN REACH. WILL CONTINUE TO MONITOR.
[2020-02-11] MEDS: INSULIN LISPRO SLIDING SCALE 100 UNITS/ML VIAL SUBQ PRN ×2 (11:46→16:35)
[2020-02-11 12:00] VITALS: BP 173/82
[2020-02-11] MEDS: THERAHONEY GEL 42.5 GM TP SCH (12:51)
--- NOTE | 2020-02-11 13:12 | NUR ---
REASSESSED PT VITAL SIGNS AT THIS TIME AFTER GIVING HER HYDRALAZINE BP 155/74 DC 80. INFORMED MD. WILL CONTINUE TO MONITOR.
--- NOTE | 2020-02-11 13:30 | NUR ---
CLEANED LEFT HEEL AND LEFT LATERAL FOOT WOUND WITH NS AND GAUZE, PT DRY WITH THERAHONEY GEL AND ADAPTIC DRESSING. WRAP WITH MAGGIE. PT TOLERATED WELL. SAFETY MEASURES IN PLACE AND CALL LIGHT WITHIN REACH. WILL CONTINUE TO MONITOR.
[2020-02-11] MEDS: MORPHINE SULFATE 2 MG/ML SYR IVP PRN (14:28)
--- NOTE | 2020-02-11 14:33 | NUR ---
DC PLANNING: SEEN BY DR WILLAMS RECOMMENDED FOR TO CONTINUE IV ABX ZOSYN FOR RIGHT FOOT OSTEO. PATIENT AND FAMILY AGREED TO GO TO SNF FOR IV ABX. CHOICE OF VENDOR GIVEN . FAXED TO [facility], [facility] AND [facility]. CM TO FOLLOW Addendum: 02/12/20 at 1331 by Naomi Tejada CM DC PLANNING: RECEIVED A CALL FROM [facility] SPOKE WITH RANDI ACCEPTED PATIENT BUT PT BECAME POSITIVE FOR COVID AND [facility] [place] HAS NO BED FOR COVID PATIENT. CONTACTED AND FAXED [facility]ONY MCCR[facility] SPOKE WITH [facility] , AND TONY MCCRAY ACCEPTED PATIENT CAN GO TO ROOM [facility] PER [facility] CAN ARRANGE TRANSPORT PLS CONTACT TONY RILEY'S NUMBER [phone] . CM TO FOLLOW
--- NOTE | 2020-02-11 14:46 | NUR ---
PT COMPLAINS OF PAIN OF 7/10 AND FEVER OF 100.5F. GIVEN PAIN MEDICATIONS AND TYLENOL FOR FEVER. SAFETY MEASURES IN PLACE CALL LIGHT WITHIN REACH.
--- NOTE | 2020-02-11 14:48 | NUR ---
PT HASD A FEVER OF 100.5 GAVE TYLENOL PO AT THIS TIME
--- NOTE | 2020-02-11 16:00 | NUR ---
MEDICATIONS DUE GIVEN AND CHECK VITAL SIGNS BP 176/60 PA 85 GAVE PT HYDRALAZINE PO. SAFETY MEASURES IN PLACE, CALL LIGHT WITHIN REACH. WILL CONTINUE TO MONITOR
[2020-02-11] MEDS: hydrALAZINE 10 MG TAB PO SCH (16:20)
[2020-02-11] MEDS: NACL 0.9% 1,000 ML IV SCH ×2 (16:41→23:54)
[2020-02-11 18:07] VITALS: BP 162/73
--- NOTE | 2020-02-11 18:30 | NUR ---
CHECK PT TEMPERATURE AT THIS TIME TEMP: 98.3 WILL CONTINUE TO MONITOR.
--- NOTE | 2020-02-11 19:07 | NUR ---
ENDORSED PT TO NIGHT NURSE FOR CONTINUITY OF CARE PT IS STABLE
--- NOTE | 2020-02-11 19:08 | NUR ---
RECEIVED REPORT FROM DAY SHIFT NURSE JOHN FOR CONTINUITY OF CARE. PATIENT IN STABLE CONDITION. RESPIRATIONS EVEN AND UNLABORED, ROOM AIR. IV ACCESS INTACT AND PATENT. SAFETY MEASURES IN PLACE. BED IN LOW POSITION. BED LOCKED. BED ALARM ON. CALL LIGHT WITHIN REACH. WILL CONTINUE TO MONITOR.
--- NOTE | 2020-02-11 21:17 | NUR ---
GAVE ORDERED DUE MEDICATIONS AT THIS TIME. PATIENT TOLERATING WELL.
[2020-02-12] VITALS: BP 180/84
[2020-02-12] MEDS: hydrALAZINE 20 MG/ML VIAL IVP PRN (00:23)
--- NOTE | 2020-02-12 00:23 | NUR ---
GAVE PRN MEDICATION FOR INCREASED B/P 180/84. PATIENT IN STABLE CONDITION. BED IN LOW POSITION. BED ALARM ON. BED LOCKED. CALL LIGHT WITHIN REACH. WILL CONTINUE TO MONITOR.
--- NOTE | 2020-02-12 00:54 | NUR ---
CLEANED AND CHANGED AFTER URINATION. PATIENT TOLERATED WELL. BED IN LOW POSITION. BED ALARM ON. BED LOCKED. CALL LIGHT WITHIN REACH. WILL CONTINUE TO MONITOR.
--- NOTE | 2020-02-12 02:30 | NUR ---
PATIENT SLEEPING AT THIS TIME. RESPIRATIONS EVEN AND UNLABORED. BED IN LOW POSITION. BED ALARM ON. BED LOCKED. CALL LIGHT WITHIN REACH. WILL CONTINUE TO MONITOR.
[2020-02-12 04:00] VITALS: BP 159/80
--- NOTE | 2020-02-12 05:00 | NUR ---
COLLECTED LAB SPECIMEN FROM PICC LINE AT THIS TIME. PATIENT SLEEP, AROUSED EASILY. BED IN LOW POSITION. BED ALARM ON. BED LOCKED. CALL LIGHT WITHIN REACH. WILL CONTINUE TO MONITOR.
[2020-02-12 06:16] LABS: BASOPHILS % (AUTO) 0.4 % (0.0-2.0); HEMATOCRIT 33.1 % (36-48); LYMPHOCYTES # (AUTO) 2.3 K/uL (2.5-16.5); MEAN CORPUSCULAR HEMOGLOBIN 29 pg (27-31); MEAN CORPUSCULAR HGB CONC 33 g/dL (33-37); MEAN CORPUSCULAR VOLUME 86.1 fL (80-94); MONOCYTES # (AUTO) 0.8 K/uL (0.8-1.0); MONOCYTES % (AUTO) 6.4 % (1.7-9.3); NEUTROPHILS # (AUTO) 9.8 K/uL (1.8-7.7); NEUTROPHILS % (AUTO) 75.2 % (42.2-75.2); PLATELET COUNT (AUTO) 240 K/uL (140-450); RED BLOOD CELL COUNT(AUTO) 3.85 MIL/uL (4.20-5.40); RED CELL DISTRIBUTION WIDTH 13.9 % (11.6-13.7)
[2020-02-12 07:02] LABS: MAGNESIUM 1.7 mg/dL (1.8-2.4); PHOSPHORUS 2.7 mg/dL (2.5-4.9)
[2020-02-12 07:03] LABS: ALBUMIN 1.9 g/dL (3.4-5.0); ANION GAP 11.6 (8-16); ASPARTATE AMINOTRANSFERASE 26 U/L (15-37); CARBON DIOXIDE 27.4 mmol/L (21-32); CHLORIDE 104 mmol/L (98-107); GLUCOSE 131 mg/dL (74-106); LACTATE DEHYDROGENASE 167 U/L (81-234); SODIUM SERUM 140 mmol/L (136-145); TOTAL BILIRUBIN 0.3 mg/dL (0.0-1.0); UREA NITROGEN, BLOOD 14 mg/dL (7-18)
--- NOTE | 2020-02-12 07:15 | NUR ---
GAVE REPORT TO DAY SHIFT NURSE MICHELLE FOR CONTINUITY OF CARE. PATIENT IN STABLE CONDITION.
--- NOTE | 2020-02-12 07:16 | NUR ---
RECEIVED REPORT FROM NIGHT NURSE FOR CONTINUITY OF CARE, PT IS STABLE, PT AAOX3, RESPIRATIONS ARE EVEN AND UNLABORED ON ROOM AIR, PT HAS LEFT UA 22G INFUSING NS AT 40ML/H, PT HAS SAUD PICC LINE INSERTED 02/10, PT HAS LEFT FOOT ULCER, PT POSITIVE FOR COVID, WILL INTRODUCE SELF AND UPDATE WHITEBOARD, ALL NEEDS MET AT THIS TIME. CALL LIGHT WITHIN REACH.
[2020-02-12] MEDS: BLOOD GLUCOSE MONITORING 1 DEV DEV FS SCH ×4 (07:45→20:44)
[2020-02-12 08:00] VITALS: BP 197/62
[2020-02-12] MEDS: PIPERACILLIN/TAZOBACTAM 3.375 GM in DEXTROSE 5% 50 ML IV SCH ×2 (08:09→16:25)
[2020-02-12] MEDS: hydrALAZINE 10 MG TAB PO SCH ×3 (08:11→20:45)
[2020-02-12] MEDS: DOCUSATE SODIUM 100 MG GELCAP PO SCH ×2 (08:11→20:44)
[2020-02-12] MEDS: METOPROLOL 25 MG TAB PO SCH ×2 (08:12→20:45)
[2020-02-12] MEDS: LACTOBACILLUS RHAMNOSUS GG 1 EACH CAP PO SCH (08:12)
[2020-02-12] MEDS: LISINOPRIL 20 MG TAB PO SCH (08:13)
[2020-02-12] MEDS: ASCORBIC ACID 500 MG TAB PO SCH (08:13)
[2020-02-12] MEDS: ZINC SULF 220 MG CAP PO SCH (08:14)
[2020-02-12] MEDS: VITAMIN D 400 IU TAB PO SCH (08:40)
[2020-02-12] MEDS: MORPHINE SULFATE 2 MG/ML SYR IVP PRN (08:40)
--- NOTE | 2020-02-12 08:47 | NUR ---
ADMINISTERED MORPHINE FOR PAIN 8/ OF LEFT FOOT ULCER, PT STATES SHE HAS SHARP PAIN AND WANTS PAIN MEDICATION, ADMINISTERED SCHEDULED MEDICATION, MEDICATION EDUCATION GIVEN, PT VERBALIZED UNDERSTANDING, PT TOLERATED WELL, PT IS STABLE, NO SIGNS OF DISTRESS NOTED, CALL LIGHT WITHIN REACH.
[2020-02-12] MEDS ORDERED: POTASSIUM CHLORIDE 40 MEQ, LIDOCAINE MPF 1% 25 MG in NACL 0.9% 250 ML IV SCH (09:30)
--- NOTE | 2020-02-12 09:41 | NUR ---
ADMINISTERED SCHEDULED MEDICATION, MEDICATION EDUCATION GIVEN, PT VERBALIZED UNDERSTANDING, PT IS STABLE, CALL LIGHT WITHIN REACH, NO SIGNS OF DISTRESS NOTED, PT STATES STOMACH HURTS AND THINKS SHE MAY NEED TO HAVE A BOWEL MOVEMENT, INFORM PT TO CALL NURSE ONCE SHE HAS HAD BM, CALL LIGHT WITHIN REACH
[2020-02-12] MEDS: DEXT 5% /NACL 0.9% 1,000 ML IV SCH (11:18)
[2020-02-12] MEDS: INSULIN LISPRO SLIDING SCALE 100 UNITS/ML VIAL SUBQ PRN ×2 (12:09→16:46)
--- NOTE | 2020-02-12 12:13 | NUR ---
ADMINISTERED HUMALOG OF 2 UNITS FOR BLOOD GLUCOSE OF 166, MEDICATION EDUCATION GIVEN, PT TOLERATED WELL, PT STABLE, NO SIGNS OF DISTRESS NOTED, RESPIRATIONS ARE EVEN AND UNLABORED ON ROOM AIR, CALL LIGHT WITHIN REACH.
[2020-02-12] MEDS ORDERED: amLODIPine 5 MG TAB PO SCH (13:45)
[2020-02-12] MEDS: THERAHONEY GEL 42.5 GM TP SCH (14:00)
[2020-02-12] MEDS ORDERED: hydrALAZINE 10 MG TAB PO SCH (14:00)
--- NOTE | 2020-02-12 14:14 | NUR ---
ADMINISTERED SCHEDULED MEDICATION, MEDICATION EDUCATION GIVEN, PT TOLERATED MEDICATION, PT STABLE, CALL LIGHT WITHIN REACH.
--- NOTE | 2020-02-12 15:30 | NUR ---
PT SITTING IN BED RESTING, PT IS STABLE, NO SIGNS OF DISTRESS NOTED, RESPIRATIONS ARE EVEN AND UNLABORED ON ROOM AIR, CALL LIGHT WITHIN REACH.
[2020-02-12 16:00] VITALS: BP 151/70
--- NOTE | 2020-02-12 16:46 | NUR ---
ADMINISTERED HUMALOG 2 UNITS FOR BLOOD GLUCOSE OF 159, ADMINISTERED SCHEDULED MEDICATION, MEDICATION EDUCATION GIVEN, PT VERBALIZED UNDERSTANDING, PT IS STABLE, CALL LIGHT WITHIN REACH.
--- NOTE | 2020-02-12 19:10 | NUR ---
RECEIVED PT AAOX2 TO 3 - POOR HISTORIAN - NEEDS REINFORCEMENT , PER AM NURSE PT. HAD FLACTUACTING HIGH BP - WILL MONITOR , FLAACC 0 , DENIES ANY PAIN . W/ PICC LINE ON R UA AND IV MILOA G 22 AT [facility] . W/ L FOOT OPEN WOUND - NEWLY DRESSED . SAFETY MEASURES IN PLACE . PLAN OF CARE DISCUSSED AND SHOWS FAIR UNDERSTANDING . WILL CONT. TO MONITOR.
--- NOTE | 2020-02-12 19:10 | NUR ---
GAVE REPORT TO NIGHT NURSE FOR CONTINUITY OF CARE, PT IS STABLE
[2020-02-12] MEDS ORDERED: METOPROLOL 25 MG TAB PO SCH (21:00)
[2020-02-12] MEDS ORDERED: POTASSIUM CHLORIDE 10 MEQ TABER PO SCH (21:00)
--- NOTE | 2020-02-12 22:00 | NUR ---
made rounds , no s/sx of acute distress noted at this time ,will cont. to monitor.
--- NOTE | 2020-02-13 | NUR ---
MADE ROUNDS , RESTING ON BED COMFORTABLY - BP 166/ 77 - WILL GIVE APRESOLINE ORDERED, WILL CONT. TO MONITOR.
[2020-02-13] MEDS: hydrALAZINE 20 MG/ML VIAL IVP PRN ×2 (00:06→07:12)
--- NOTE | 2020-02-13 02:00 | NUR ---
MADE ROUNDS , BP 155 / 93 - NO COMPLAIN MADE .
[2020-02-13 04:00] VITALS: BP 152/92
--- NOTE | 2020-02-13 04:00 | NUR ---
MADE ROUNDS , NO S/SX OF ACUTE DISTRESS NOTED , WILL CONT. TO MONITOR.
[2020-02-13] MEDS: BLOOD GLUCOSE MONITORING 1 DEV DEV FS SCH ×2 (06:00→11:43)
--- NOTE | 2020-02-13 06:00 | NUR ---
BP RE CHECK BP 180 /92 , WILL GIVE APRESOLINE ORDERED , WILL CONT. TO MONITOR , UT 91 , O2 SAT WNL - FLACC 0 , NO COMPLAIN MADE , RESTING ON BED COMFORTABLY ..
[2020-02-13] MEDS ORDERED: VITC500 PO (06:03)
[2020-02-13] MEDS ORDERED: MORP2SOL18 IVP (06:03)
[2020-02-13] MEDS ORDERED: METO25TA PO (06:03)
[2020-02-13] MEDS ORDERED: LACT10CA PO (06:03)
[2020-02-13] MEDS ORDERED: HUMSLIDE SUBQ (06:03)
[2020-02-13] MEDS ORDERED: GLUC-805 FS (06:03)
[2020-02-13] MEDS ORDERED: D50SYR IVP (06:03)
[2020-02-13] MEDS ORDERED: PIPE1SOL IV (06:03)
[2020-02-13] MEDS ORDERED: ZINC220C28 PO (06:03)
[2020-02-13] MEDS ORDERED: AMLO5TAB6 PO (06:03)
[2020-02-13] MEDS ORDERED: ACET-1182 PO (06:03)
[2020-02-13] MEDS ORDERED: ACET-9525 PO (06:03)
[2020-02-13] MEDS ORDERED: APR10 PO (06:03)
[2020-02-13] MEDS ORDERED: DOCU-299 PO (06:03)
[2020-02-13] MEDS ORDERED: VITD400 PO (06:03)
[2020-02-13] MEDS ORDERED: LISI-420 PO (06:03)
[2020-02-13] MEDS ORDERED: HEPA500056 SUBQ (06:03)
[2020-02-13] MEDS ORDERED: APR20I IVP (06:03)
[2020-02-13] MEDS ORDERED: ATI2I IM/IVP (06:03)
[2020-02-13] MEDS ORDERED: Therahoney Gel TP (06:03)
[2020-02-13] MEDS ORDERED: ONDA2SOL45 IM/IVP (06:03)
[2020-02-13] MEDS: INSULIN LISPRO SLIDING SCALE 100 UNITS/ML VIAL SUBQ PRN (06:07)
[2020-02-13] MEDS: DEXT 5% /NACL 0.9% 1,000 ML IV SCH (06:10)
--- NOTE | 2020-02-13 07:10 | NUR ---
ENDORSED TO AM SHIFT - PT - STABLE . Addendum: 02/13/20 at 0734 by Roz Miller RN THE TIME OF ABOVE NURSE'S NOTE ENTRY IS TYPOGRAPHICALLY ERROR INSTEAD OF 0715 - OLIVIA
--- NOTE | 2020-02-13 07:15 | NUR ---
RECEIVED BEDSIDE SHIFT REPORT FROM ELECTRICAL ESTIMATOR NURSE FOR CONTINUATION OF CARE.
[2020-02-13 07:33] LABS: BASOPHILS # (AUTO) 0.1 K/uL (0.00-0.22); BASOPHILS % (AUTO) 0.4 % (0.0-2.0); EOSINOPHILS % (AUTO) 0.1 % (0.0-4.0); HEMATOCRIT 34.9 % (36-48); HEMOGLOBIN 11.5 g/dL (12.0-16.0); LYMPHOCYTES # (AUTO) 2.5 K/uL (2.5-16.5); LYMPHOCYTES % (AUTO) 15.4 % (20.5-51.1); MEAN CORPUSCULAR HEMOGLOBIN 28 pg (27-31); MEAN CORPUSCULAR HGB CONC 33 g/dL (33-37); MEAN CORPUSCULAR VOLUME 85.5 fL (80-94); MONOCYTES # (AUTO) 0.9 K/uL (0.8-1.0); MONOCYTES % (AUTO) 5.8 % (1.7-9.3); NEUTROPHILS # (AUTO) 12.7 K/uL (1.8-7.7); NEUTROPHILS % (AUTO) 78.3 % (42.2-75.2); PLATELET COUNT (AUTO) 276 K/uL (140-450); RED BLOOD CELL COUNT(AUTO) 4.08 MIL/uL (4.20-5.40); RED CELL DISTRIBUTION WIDTH 13.9 % (11.6-13.7); WHITE BLOOD COUNT (AUTO) 16.2 K/uL (4.8-10.8)
[2020-02-13 07:45] LABS: ASPARTATE AMINOTRANSFERASE 25 U/L (15-37); CARBON DIOXIDE 25.2 mmol/L (21-32); CHLORIDE 103 mmol/L (98-107); CREATININE 0.8 mg/dL (0.6-1.3); GLUCOSE 184 mg/dL (74-106); LACTATE DEHYDROGENASE 209 U/L (81-234); MAGNESIUM 1.6 mg/dL (1.8-2.4); PHOSPHORUS 2.4 mg/dL (2.5-4.9); POTASSIUM 3.2 mmol/L (3.5-5.1); SODIUM SERUM 136 mmol/L (136-145); TOTAL BILIRUBIN 0.4 mg/dL (0.0-1.0); UREA NITROGEN, BLOOD 10 mg/dL (7-18)
[2020-02-13] MEDS: PIPERACILLIN/TAZOBACTAM 3.375 GM in DEXTROSE 5% 50 ML IV SCH ×3 (08:37)
[2020-02-13] MEDS: VITAMIN D 400 IU TAB PO SCH (08:38)
[2020-02-13] MEDS: hydrALAZINE 10 MG TAB PO SCH ×2 (08:38→13:20)
[2020-02-13] MEDS: DOCUSATE SODIUM 100 MG GELCAP PO SCH (08:39)
[2020-02-13] MEDS: METOPROLOL 25 MG TAB PO SCH (08:40)
[2020-02-13] MEDS: LACTOBACILLUS RHAMNOSUS GG 1 EACH CAP PO SCH (08:40)
[2020-02-13] MEDS: LISINOPRIL 20 MG TAB PO SCH (08:41)
[2020-02-13] MEDS: ASCORBIC ACID 500 MG TAB PO SCH (08:41)
[2020-02-13] MEDS: ZINC SULF 220 MG CAP PO SCH (08:42)
[2020-02-13] MEDS ORDERED: amLODIPine 5 MG TAB PO SCH (09:00)
--- NOTE | 2020-02-13 09:18 | NUR ---
MEDICATIONS TOLERATED WELL, REPORTS NO APPETITE. IV LINES CHECKED AND INTACT, RUNNING ZOSYN. DENIES PAIN AT THIS TIME. BLOOD PRESSURE REASSESSED 162/72. NO SYMPTOMS. PATIENT REPORTS FEELING BETTER. USED TRANSLATION PHONE TO COMMUNICATE WITH PATIENT.
--- NOTE | 2020-02-13 11:19 | NUR ---
MOVED PATIENT UP IN BED WITH THE ASSISTANCE OF ESCALATOR OPERATOR, DENIES PAIN. PATIENT ASKED ABOUT DC, WAS NOTIFIED THAT SHE IS NOT STABLE FOR DISCHARGE TODAY. HER BLOOD PRESSURE IS 140/67. WILL CONTINUE TO MONITOR.
[2020-02-13 12:00] VITALS: BP 140/72
--- NOTE | 2020-02-13 13:15 | NUR ---
PATIENT IS RESTING IN BED, SPOKE WITH SON REGARDING STATUS. SON IS ON THE CONSENT FOR INFORMATION. WILL CONTINUE TO MONITOR.
[2020-02-13] MEDS: THERAHONEY GEL 42.5 GM TP SCH (13:20)
[2020-02-13] MEDS ORDERED: MAGNESIUM OXIDE 400 MG TAB PO SCH (14:25)
--- NOTE | 2020-02-13 14:54 | NUR ---
OBSERVED CHEST RISE AND FALL, SKIN IS INTACT, SUCTIONED 5 ML OF THICK FLUID FROM NOSTRILS. WILL CONTINUE TO MONITOR.
--- NOTE | 2020-02-13 16:45 | NUR ---
DISCHARGED, PAPERWORK REVIEWED AND DISCHARGE PAPERWORK EXPLAINED TO PATIENT. BELONGINGS ACCOUNTED FOR AND RETURNED. IV LINES REMOVED, PICC LINE INTACT. PATIENT GIVEN A DIAPER. REPORT GIVEN TO ANGEL MONTALVO AT [facility].
== END 2020-02-13 16:50 | DRG 177 ==
LOC: MED 14:42 → MTU 16:52 → EEVIPCON 16:52
PROVIDERS: ADMIT General Practice; ATTEND General Practice
DX: U07.1 COVID-19 (principal); E43 Unspecified severe protein-calorie malnutrition; J18.9 Pneumonia, unspecified organism; M86.9 Osteomyelitis, unspecified; L97.429 Non-pressure chronic ulcer of left heel and midfoot with unspecified severity; E78.5 Hyperlipidemia, unspecified; I10 Essential (primary) hypertension; E11.621 Type 2 diabetes mellitus with foot ulcer; I16.0 Hypertensive urgency; D72.829 Elevated white blood cell count, unspecified; E11.69 Type 2 diabetes mellitus with other specified complication; K56.41 Fecal impaction; E83.42 Hypomagnesemia; L21.9 Seborrheic dermatitis, unspecified; E87.6 Hypokalemia; E11.51 Type 2 diabetes mellitus with diabetic peripheral angiopathy without gangrene; L97.529 Non-pressure chronic ulcer of other part of left foot with unspecified severity; L08.9 Local infection of the skin and subcutaneous tissue, unspecified; E11.628 Type 2 diabetes mellitus with other skin complications; S92.353A Displaced fracture of fifth metatarsal bone, unspecified foot, initial encounter for closed fracture; X58.XXXA Exposure to other specified factors, initial encounter; Z68.24 Body mass index [BMI] 24.0-24.9, adult; Z79.4 Long term (current) use of insulin; Y93.89 Activity, other specified; Y92.89 Other specified places as the place of occurrence of the external cause; Y99.8 Other external cause status
CPT/HCPCS: 36415; 71045; 73630; 78300; 80048; 80053; 80202; 81001; 82948; 83605; 83615; 83690; 83735; 84100; 84443; 84484; 85025; 85379; 85610; 85651; 86140; 87040; 87070; 87075; 87081; 87086; 87186; 87205; 93925; 93970; 96365; 96367; 96375; 99285; A9503; C1751; J0360; J1644; J1815; J2001; J2270; J2405; J2543; J3370; J3475; J3480; J7030; J7042; J7060; Q0092; U0003-CS